=== PATIENT | female | born 1985 | race Caucasian/White ===

== ENCOUNTER 2016-11-08 10:27 | Emergency (ER) | payer BC, MEDICAID ==
[2016-11-08 11:25] LABS: HCG,QUALITATIVE URINE NEGATIVE; URINE BILIRUBIN NEGATIVE (NEGATIVE); URINE BLOOD NEGATIVE (NEGATIVE); URINE GLUCOSE (UA) NEGATIVE (NEGATIVE); URINE LEUKOCYTE ESTERASE TRACE (NEGATIVE); URINE NITRITE NEGATIVE (NEGATIVE); URINE PROTEIN NEGATIVE (NEGATIVE); URINE UROBILINOGEN NORMAL (0-1 mg/dl)
[2016-11-08] MEDS ORDERED: HYDROCODONE/ACETAMINOPHEN 5/325MG TABLET ONE (11:25)
[2016-11-08] MEDS ORDERED: PREDNISONE 20 MG TABLET ONE (11:25)
[2016-11-08 11:26] LABS: URINE APPEARANCE CLEAR; URINE COLOR YELLOW
[2016-11-08 12:20] LABS: URINE BACTERIA RARE; URINE EPITHELIAL CELLS 0-1 /hpf; URINE RBC 0-1 /hpf; URINE WBC 0-1 /hpf
== END 2016-11-08 11:36 | disposition home or self-care (01) ==
LOC: ED 10:27
DX: S39.012A Strain of muscle, fascia and tendon of lower back, initial encounter (principal); X50.0XXA Overexertion from strenuous movement or load, initial encounter; Y93.89 Activity, other specified; Y99.8 Other external cause status; M54.31 Sciatica, right side; Z79.1 Long term (current) use of non-steroidal anti-inflammatories (NSAID)
CPT/HCPCS: 81025; 81001; 99283 ×2; 51798; J7512; A9270